=== PATIENT | male | born 1950 | race Caucasian/White ===

== ENCOUNTER 2023-05-17 14:32 | Outpatient (AMB) | payer MEDICARE, BC, SELFPAY ==
--- NOTE | 2023-05-17 14:45 | HO.NEPHOV_ITS ---
HPI HPI Comments History of Present Illness Details 72-year-old man with a history of longst anding hypertension and mild CKD. Overall blood pressure has been well controlled. Serum creatinine has been relatively stable. He was diagnosed with myasthenia gravis after developing double vision. Initially was treated with high-dose of steroids and currently he has on a tapering dose. He is scheduled for a bone densitometry Overall is doing well. No new complaints today. PFSH Family History Father Hypertension Diabetes Mother Hypertension Social History (Updated 05/17/23 @ 14:49 by Es Mejia) Patient Tobacco Use Status: Never used Tobacco Vital Signs 05/17/23 14:46 05/17/23 15:08 Height 5 ft 7 in Weight 172 lb BMI 26.9 BP 146/68 H 126/64 Blood Pressure Location Lt brachial Lt brachial Position Sitting Sitting Pulse 97 Pulse Source Pulse Oximeter Pulse Oximetry (%) 98 Oxygen Delivery Method Room Air Physical Exam Vital Signs: Last Vital Signs Pulse 97 05/17/23 14:46 BP 126/64 05/17/23 15:08 Pulse Ox 98 05/17/23 14:46 Oxygen Delivery Method Room Air 05/17/23 14:46 BMI result Body Mass Index 26.9 Const General: comfortable Nutritional Appearance: well nourished Orientation/consciousness: patient oriented x3 HEENT Head: No normal to inspection Mouth: moist mucous membranes Neck Neck: Yes supple and Yes no JVD Resp Auscultation: clear to auscultation bilaterally, no rales and rub present Cardio Jugular venous distension: no JVD Palpation: no palpable S3 and no palpable S4 Heart sounds: no rubs GI Palpation (GI): Soft to palpation and nontender Percussion: No Fluid wave present General: Yes no CVA tenderness Back/Spine/Pelvis Back: no CVA tenderness Skin General skin exam: no rashes or lesions noted Neuro General: patient oriented x3 Extrem General: Yes no pedal edema and No clubbing Assessment & Plan Assessment & Plan (1) CKD (chronic kidney disease): Comment: Due to diabetic hypertensive nephrosclerosis Code(s): N18.9 - Chronic kidney disease, unspecified Plan: Overall renal function is relatively close to baseline. Goal is to slow the progression of renal disease Maintain blood pressure less than 130/80 Continue to avoid nephrotoxic agents Increase p.o. fluid intake He would benefit from SGLT2 inhibitor (2) HTN (hypertension): Comment: Blood pressure is well control Code(s): I10 - Essential (primary) hypertension Plan: Discussed importance of low-salt diet. No changes were made to his antihypertensive regimen. (3) Diabetes mellitus with chronic kidney disease: Code(s): E11.22 - Type 2 diabetes mellitus with diabetic chronic kidney disease Plan: Maintain A1c less than 7% Watch blood sugars while on prednisone Coding Level of Care Code Est Pt Level 4 (44750) Diagnoses CKD (chronic kidney disease) N18.9 HTN (hypertension) I10 Diabetes mellitus with chronic kidney disease E11.22 Results Reviewed Results Reviewed: Recent creatinine 1.4 Nephrology Results: No Data to Display
[2023-05-17 14:46] VITALS: BP 146/68; PULSE 97; O2SAT 98; BMI 26.9
[2023-05-17 15:08] VITALS: BP 126/64
== END 2023-05-17 15:14 | disposition home or self-care (01) ==
PROVIDERS: PCP Internal Medicine; Visit Provider Internal Medicine Hypertension Specialist
DX: I12.9 Hypertensive chronic kidney disease with stage 1 through stage 4 chronic kidney disease, or unspecified chronic kidney disease (principal); E11.22 Type 2 diabetes mellitus with diabetic chronic kidney disease; N18.9 Chronic kidney disease, unspecified
CPT/HCPCS: 99214

== ENCOUNTER → 2023-05-17 14:32 | Outpatient (BNVA) | payer MEDICARE, BC, SELFPAY | PROVIDERS: PCP Internal Medicine; Visit Provider Internal Medicine Hypertension Specialist | DX: I12.9 Hypertensive chronic kidney disease with stage 1 through stage 4 chronic kidney disease, or unspecified chronic kidney disease (principal); E11.22 Type 2 diabetes mellitus with diabetic chronic kidney disease; N18.9 Chronic kidney disease, unspecified | CPT/HCPCS: 99212 ==

== ENCOUNTER 2023-11-15 10:59 | Outpatient (AMB) | payer MEDICARE, BC, SELFPAY ==
[2023-11-15 11:02] VITALS: BP 162/62; PULSE 87; O2SAT 98; BMI 25.8
--- NOTE | 2023-11-15 11:02 | HO.NEPHOV ---
Vital Signs 11/15/23 11:02 Height 5 ft 7 in Weight 165 lb BMI 25.8 BP 162/62 H Blood Pressure Location Lt brachial Position Sitting Pulse 87 Pulse Source Pulse Oximeter Pulse Oximetry (%) 98 Oxygen Delivery Method Room Air Intake Visit Reasons: 6 mon follow up/ Conf [employer] Fire Aid Required: No Accompanied by: Self / Same As Patient Allergies No Known Allergies Allergy (Verified 11/15/23 11:07) HPI Comments Details: 72-year-old man with a history of longstanding hypertension and mild CKD. Overall blood pressure has been well controlled. Serum creatinine has been relatively stable. He was diagnosed with myasthenia gravis after developing double vision. Initially was treated with high-dose of steroids and currently he has on a tapering dose. He is scheduled for a bone densitometry Overall is doing well. No new complaints today. 11/15/23 Farxiga hs been added HOme BP is excellent Office readings elevated PFSH Family History Father Hypertension Diabetes Mother Hypertension Social History Patient Tobacco Use Status: Never used Tobacco Physical Exam Vital Signs: Last Vital Signs Pulse 87 11/15/23 11:02 BP 162/62 H 11/15/23 11:02 Pulse Ox 98 11/15/23 11:02 Oxygen Delivery Method Room Air 11/15/23 11:02 BMI result Body Mass Index 25.8 Results Reviewed Results Reviewed: Recent creatinine 1.4 REcent eGFR 47 ml/mt Nephrology Results: No Data to Display Assessment & Plan Assessment & Plan (1) CKD (chronic kidney disease): Comment: Due to diabetic hypertensive nephrosclerosis Code(s): N18.9 - Chronic kidney disease, unspecified Category: Medical Plan: Overall renal function is relatively close to baseline. Goal is to slow the progression of renal disease Maintain blood pressure less than 130/80 Continue to avoid nephrotoxic agents Increase p.o. fluid intake Agree with starting SGLT2 inhibitor (2) HTN (hypertension): Comment: Blood pressure is well control at home; Office readings are elevated Code(s): I10 - Essential (primary) hypertension Category: Medical Plan: Discussed importance of low-salt diet. No changes were made to his antihypertensive regimen. (3) Diabetes mellitus with chronic kidney disease: Code(s): E11.22 - Type 2 diabetes mellitus with diabetic chronic kidney disease Category: Medical Plan: Maintain A1c less than 7% Watch blood sugars while on prednisone Orders: Orders Basic Metabolic Panel 6 Months I10 - Essential (primary) hypertension, N18.9 - Chronic kidney disease, unspecified Parathyroid Hormone Intact 6 Months I10 - Essential (primary) hypertension, N18.9 - Chronic kidney disease, unspecified Phosphorus 6 Months I10 - Essential (primary) hypertension, N18.9 - Chronic kidney disease, unspecified Coding Level of Care Code Est Pt Level 4 (79304) Diagnoses CKD (chronic kidney disease) N18.9 HTN (hypertension) I10 Diabetes mellitus with chronic kidney disease E11.22
== END 2023-11-15 11:23 | disposition home or self-care (01) ==
PROVIDERS: PCP Internal Medicine; Visit Provider Internal Medicine Hypertension Specialist
DX: I12.9 Hypertensive chronic kidney disease with stage 1 through stage 4 chronic kidney disease, or unspecified chronic kidney disease (principal); N18.9 Chronic kidney disease, unspecified; E11.22 Type 2 diabetes mellitus with diabetic chronic kidney disease
CPT/HCPCS: 99214

== ENCOUNTER → 2023-11-15 10:59 | Outpatient (BNVA) | payer MEDICARE, BC, SELFPAY | PROVIDERS: PCP Internal Medicine; Visit Provider Internal Medicine Hypertension Specialist | DX: E11.22 Type 2 diabetes mellitus with diabetic chronic kidney disease (principal); I12.9 Hypertensive chronic kidney disease with stage 1 through stage 4 chronic kidney disease, or unspecified chronic kidney disease; N18.9 Chronic kidney disease, unspecified | CPT/HCPCS: 99212 ==

== ENCOUNTER 2024-06-19 08:51 | Outpatient (AMB) | payer MEDICARE, BC, SELFPAY ==
[2024-06-19 08:53] VITALS: BP 138/66; PULSE 78; O2SAT 96; BMI 26.4
--- NOTE | 2024-06-19 08:53 | HO.NEPHOV_ITS ---
Vital Signs 06/19/24 08:53 Height 5 ft 7 in Weight 168 lb 8 oz BMI 26.4 BP 138/66 Blood Pressure Location Lt brachial Position Sitting Pulse 78 Pulse Source Pulse Oximeter Pulse Oximetry (%) 96 Oxygen Delivery Method Room Air Intake Visit Reasons: 6 mon follow up/ LVM Allergies No Known Allergies Allergy (Verified 06/19/24 08:55) Medication List - Last Reconciled 06/19/24 by Terrance Mclean MD calcium carbonate-vitamin D3 500 mg-10 mcg (400 unit) (Oyster Shell Calcium- Vitamin D3) 2 tabs PO DAILY empagliflozin 12.5 mg PO DAILY fenofibrate 54 mg PO DAILY hydralazine 50 mg PO BID hydrochlorothiazide 25 mg PO DAILY insulin glargine 38 units subcut QPM mecobalamin (vitamin B12) 1,000 mcg PO DAILY metformin ER 1,000 mg PO DAILY prednisone 5 mg PO Q OTHER DAY rosuvastatin 40 mg PO DAILY HPI Comments Details: 72-year-old man with a history of longstanding hypertension and mild CKD. Overall blood pressure has been well controlled. Serum creatinine has been relatively stable. He was diagnosed with myasthenia gravis after developing double vision. Initially was treated with high-dose of steroids and currently he has on a tapering dose. He is scheduled for a bone densitometry Overall is doing well. No new complaints today. 11/15/23 Farxiga hs been added;HOme BP is excellent ;Office readings elevated 06/19/24 No new issues PFSH Family History Father Hypertension Diabetes Mother Hypertension Social History Patient Tobacco Use Status: Never used Tobacco Physical Exam Vital Signs: Last Vital Signs Pulse 78 06/19/24 08:53 BP 138/66 06/19/24 08:53 Pulse Ox 96 06/19/24 08:53 Oxygen Delivery Method Room Air 06/19/24 08:53 BMI result Body Mass Index 26.4 Const General: comfortable Nutritional Appearance: well nourished Orientation/consciousness: patient oriented x3 HEENT Head: No normal to inspection Mouth: moist mucous membranes Neck Neck: Yes supple and Yes no JVD Resp Auscultation: clear to auscultation bilaterally, no rales and rub present Cardio Jugular venous distension: no JVD Palpation: no palpable S3 and no palpable S4 Heart sounds: no rubs GI Palpation (GI): Soft to palpation and nontender Percussion: No Fluid wave present General: Yes no CVA tenderness Back/Spine/Pelvis Back: no CVA tenderness Skin General skin exam: no rashes or lesions noted Neuro General: patient oriented x3 Extrem General: Yes no pedal edema and No clubbing Results Reviewed Nephrology Results: No Data to Display Assessment & Plan Assessment & Plan (1) CKD (chronic kidney disease): Comment: Due to diabetic hypertensive nephrosclerosis Code(s): N18.9 - Chronic kidney disease, unspecified Category: Medical Plan: Overall renal function is relatively close to baseline. Goal is to slow the progression of renal disease Maintain blood pressure less than 130/80 Continue to avoid nephrotoxic agents Increase p.o. fluid intake Agree with starting SGLT2 inhibitor Not on ACEi due to mild Hyperkalemia in the past (2) HTN (hypertension): Comment: Blood pressure is well control at home; Office readings are elevated Code(s): I10 - Essential (primary) hypertension Category: Medical Plan: Discussed importance of low-salt diet. No changes were made to his antihypertensive regimen. (3) Diabetes mellitus with chronic kidney disease: Code(s): E11.22 - Type 2 diabetes mellitus with diabetic chronic kidney disease Category: Medical Plan: Maintain A1c less than 7% Watch blood sugars while on prednisone Plan Potassium is normal Mild decrease in tCO2- shall watch Currently on MEtformin BUt eGFR is stable. If tCO2 decreases further, would have to stop Metformin h/o Myasthenia Gravis On Prednisone Orders: Orders Complete Blood Count no Diff 6 Months N18.9 - Chronic kidney disease, unspecified Comprehensive Met. Panel 6 Months N18.9 - Chronic kidney disease, unspecified Coding Level of Care Code Est Pt Level 4 (28156) Diagnoses CKD (chronic kidney disease) N18.9 HTN (hypertension) I10 Diabetes mellitus with chronic kidney disease E11.22
--- OUTSIDE RECORDS SUMMARY | 2024-06-19 09:19 | XMS_ITS | Encounter Summary ---
Author Organization [facility] Address [address] [place] [address] Care Team Providers Care Laminate Floor Installer Name Role Phone Rebecca Carrasco MD Primary Care Provider [phone] Encounter Details Date Type Department Care Team ([facility] Contact Info) Description 06/23/2021 Scanned Document [facility] Neurology Ophthalmology [address] [place] [id number] Harlan Maya MD Needs valid address Social History Tobacco Use Types Packs/Day Years Used Date Smoking Tobacco: Never Smokeless Tobacco: Never Alcohol Use Standard Drinks/Week Comments Yes 0 (1 standard drink = 0.6 oz pur e alcohol) SOCIAL DRINKER Sex and Gender Information Value Date Recorded Sex Assigned at Male 04/06/2022 1:28 PM EST Legal Sex Male 10:08 AM EST Gender Identity Male 04/06/2022 1:28 PM EST Sexual Orientation Choose not to disclose 2022 1:28 PM EST COVID-19 Exposure Response Date Recorded In the last month, have you been in contact with someone who was confirmed or suspected to have Coronavirus / COVID-19? No / Unsure 05/31/2021 1:51 PM EDT documented as of this encounter Plan of Treatment Not on file documented as of this encounter Visit Diagnoses Not on filedocumented in this encounter Care Teams Laminate Floor Installer Relationship Specialty Start Date End Date Rebecca Carrasco MD [address] [address] PCP - General Internal Medicine 05/10/21 documented as of this encounter
--- OUTSIDE RECORDS SUMMARY | 2024-06-19 09:19 | XMS_ITS | Encounter Summary ---
Author Organization [facility] Address [address] [place] [address] Care Team Providers Care Production Coordinator Name Role Phone Rebecca Carrasco MD Primary Care Provider [phone] Encounter Details Date Type Department Care Team (Late st Contact Info) Description 06/16/2021 Scanned Document [facility] Neurology Ophthalmology [address] [id number] Anna Valenzuela DO [address] [place] [id number] Social History Tobacco Use Types Packs/Day Years [...] on filedocumented in this encounter Care Teams Production Coordinator Relationship Specialty Start Date End Date Rebecca Carrasco MD [address] [place] [id number] PCP - General Internal Medicine 05/10/21 documented as of this encounter
--- OUTSIDE RECORDS SUMMARY | 2024-06-19 09:19 | XMS_ITS | Encounter Summary ---
Author Organization [facility] Address [address] [facility] [address] [place] [address] Phone Care Team Providers Care Senior Information Security Architect Name Role Phone Rebecca Carrasco MD Primary Care Provider [phone] Reason for Visit * Reason Comments Med Refill Encounter Details Date Type Department Care Team (Late st Contact Info) Description 03/08/2022 Refill [facility] [address] [facility] [address] [place] [address] Terrance Mclean MD Social History Tobacco Use Types Packs/Day Years Used Date Smoking Tobacco: Never Smokeless Tobacco: Never Alcohol Use Standard Drinks/Week Comments Yes 0 (1 standard drink = 0.6 oz pure alcohol) Alcoholic Drinks/day: Occasional social drink Sex and Gender Information Value Date Recorded Sex Assigned at Not on file Legal Sex Male 5:02 PM EST Gender Identity Not on file Sexual Orientation Not on file documented as of this encounter Plan of Treatment Not on file documented as of this encounter Visit Diagnoses Not on filedocumented in this encounter Care Teams Senior Information Security Architect Relationship Specialty Start Date End Date Rebecca Carrasco MD [address] [place] [address] [id number] PCP - General 03/16/20 documented as of this encounter
--- OUTSIDE RECORDS SUMMARY | 2024-06-19 09:19 | XMS_ITS | Encounter Summary ---
Author Organization [facility] Address [address] [place] [address] Phone Care Team Providers Care Child Welfare Consultant Name Role Phone Rebecca Carrasco MD Primary Care Provider [phone] Encounter Details Date Type Department Care Team (Late st Contact Info) Description 11/10/2021 Office Communication [facility] [address] [place] [address] Naheed Stephens Social History Tobacco Use Types Packs/Day Years [...] on file documented as of this encounter Miscellaneous Notes * Telephone Encounter - Naheed Stephens - 11/10/2021 5:23 PM EDT Pt called needing a refill on his hydrochlorothiazide. He did schedule a f/u , earliest I could offer was the beginning of January so he said he would call for cancellations. documented in this encounter Plan of Treatment Not on file documented as of this encounter Visit Diagnoses Not on filedocumented in this encounter Care Teams Child Welfare Consultant Relationship Specialty Start Date End Date Rebecca Carrasco MD [address] [place] [address] [address] [place] [address] PCP - General 03/16/20 documented as of this encounter
--- OUTSIDE RECORDS SUMMARY | 2024-06-19 09:19 | XMS_ITS | Clinical Summary ---
Author Organization [facility] Address [address] [place] [phone] Phone Care Team Providers Care Cloth Shrinking Supervisor Name Role Phone Rebecca Carrasco MD Primary Care Provider [phone] Allergies Active Allergy Reactions Criticality Noted Date Comments Meloxicam Other (see comments) 09/03/2014 Medications aspirin (ST MANUELITO) 81 MG EC tablet Take 1 tablet by mouth 1 (one) time each day Active fenofibrate (TRICOR) 54 MG tablet Take 1 tablet by mouth 1 (one) time each day Active insulin glargine (Basaglar KwikPen) 100 UNIT/ML injection Inject 55 Units under the skin 1 (one) time each day Active metFORMIN XR (GLUCOPHAGE-XR) 750 MG 24 hr tablet Take 2 tablets by mouth 1 (one) time each day Active metoprolol succinate XL (TOPROL-XL) 100 MG 24 hr tablet Take 1 tablet by mouth every morning Active rosuvastatin (CRESTOR) 40 MG tablet Take 1 tablet by mouth 1 (one) time each day Active SITagliptin (JANUVIA) 50 MG tablet Take 1 tablet by mouth 1 (one) time each day Active amLODIPine (NORVASC) 10 MG tablet Take 1 tablet by mouth once daily 90 tablet 12/08/2021 Active predniSONE (DELTASONE) 10 MG tablet 15 mg 04/19/2022 Active hydroCHLOROthia zide 25 MG tablet Take 1 tablet (25 mg total) by mouth 1 (one) time each day 90 tablet 3 04/26/2023 Active hydrALAZINE 50 MG tabletIndicatio ns:Hypertensive renal disease Take 1 tablet (50 mg total) by mouth in the morning and 1 tablet (50 mg total) in the evening. 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 05/05 Chronic kidney disease stage 3 08/19/2020 Hyperkalemia 08/19/2020 Hypertensive heart and renal disease with (congestive) heart failure 08/19/2020 Hypertensive renal disease 08/19/2020 Immunizations Immunization Administration Dates Next Due Typhoid, Unspecified 03/17/2009 Family History Medical History Relation Comments Diabetes Father Hypertension Father Heart disease Mother Relation Status Comments Father Mother Social History Tobacco Use Types Packs/Day Years [...] on file Sexual Orientation Not on file Last Filed Vital Signs Vital Sign Reading Time Taken Comments Blood Pressure 159/80 05/25/2022 3:23 PM EDT Pulse 84 05/25/2022 3:23 PM EDT Temperature - - Respiratory Rate - - Oxygen Saturation 98% 05/25/2022 3:23 PM EDT Inhaled Oxygen Concentration - - Weight 76.6 kg (168 lb 12.8 oz) 05/25/2022 3:23 PM EDT Height 170.2 cm (5' 7 ) 12/11/2019 12:0 0 PM EDT Body Mass Index 26.44 12/11/2019 12:00 PM EDT Plan of Treatment Health Maintenance Due Date Last Done Comments Pneumococcal Vaccine: 50+ Ye ars (1 of 2 - PCV) 06/15/1969 Diabetes: Hemoglobin A1C 05/25/2022 Diabetes: Ophthalmology Exam 05/25/2022 Diabetes: Pedal Pulse Checked 05/25/2022 Diabetes: Sensory Foot Exam 05/25/2022 Diabetes: Visual Foot Exam 05/25/2022 Influenza Vaccine (Season Ended) 2024 Hepatitis B Vaccine Aged Out No longe r eligible based on patient's age to complete this topic [place] [address] [place] [address] Medicare [facility] Medicare Care Teams Cloth Shrinking Supervisor Relationship Specialty Start Date End Date Rebecca Carrasco MD [address] [place] [id number] PCP - General 03/16/20
--- OUTSIDE RECORDS SUMMARY | 2024-06-19 09:19 | XMS_ITS | Encounter Summary ---
Author Organization [facility] Address [address] [place] [address] Care Team Providers Care Landfill Attendant Name Role Phone Rebecca Carrasco MD Primary Care Provider [phone] Encounter Details Date Type Department Care Team ([facility] Contact Info) Description 06/23/2021 Scanned Document [facility] Neurology Ophthalmology [address] [place] [phone] Harlan Maya MD Needs valid address [...] on filedocumented in this encounter Care Teams Landfill Attendant Relationship Specialty Start Date End Date Rebecca Carrasco MD [address] [address] PCP - General Internal Medicine 05/10/21 documented as of this encounter
--- OUTSIDE RECORDS SUMMARY | 2024-06-19 09:19 | XMS_ITS ---
Author Name [facility] History of Medication Use Medication Directions Dispensed Refills Start Date End Date Stat empagliflozin (JARDIANCE) 25 MG tablet Take 0.5 tablets (12.5 mg total) by mouth. 10/09/2023 active predniSONE (DELTASONE) 2.5 MG tablet Take 1 tablet (2.5 mg total) by mouth daily. With food. To take together with 5mg tb 07/19/2022 4 aborted fenofibrate (LOFIBRA) 54 MG tablet Take 1 tablet by mouth. active calcium-vitamin D (OSCAL-500/400) 500 mg/400 unit per tablet Take 2 tablets by mouth daily. With food 08/16/2021 2 aborted hydrochlorothiazide (HYDRODIURIL) 25 MG tablet Take 1 tablet by mouth daily. 04/28/2021 active aspirin enteric coated (ECOTRIN LOW STRENGTH) 81 MG EC tablet Take 1 tablet by mouth. active predniSONE (DELTASONE) 5 MG tablet Take 1 tablet (5 mg total) by mouth daily. With food. 04/19/2022 4 active pyridostigmine (MESTINON) 60 MG tablet Take 1 tablet (60 mg total) by mouth 3 (three) times a day. 07/27/2021 3 active hydrALAZINE (APRESOLINE) 50 MG tablet Take 1 tablet by mouth 2 (two) times a day. 03/04/2021 active metoPROLOL SUCCINATE (TOPROL-XL) 100 MG 24 hr tablet Take 1 tablet by mouth every morning. 2 aborted aspirin enteric coated (ECOTRIN LOW STRENGTH) 81 MG EC tablet Take 1 tablet (81 mg total) by mouth. active amLODIPine (NORVASC) 10 MG tablet Take 1 tablet (10 mg total) by mouth daily. 12/08/2021 active amLODIPine (NORVASC) 10 MG tablet Take 1 tablet by mouth daily. 03/04/2021 2 aborted predniSONE (DELTASONE) 10 MG tablet Take 1 tablet (10 mg total) by mouth daily. With food. For 90 days supply 04/19/2022 4 active predniSONE (DELTASONE) 10 MG tablet 1.5 tablets (15 mg total). 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 Myasthenia (HCC) active EncounterDiagnosisAct [facility] Macular hole of right eye active 2021-05-31 ProblemAct [facility] Hypertensive heart and renal disease with (congestive) heart failure active 2020-08-19 ProblemAct [facility] Scotoma involving central area, right eye active 2021-05-31 ProblemAct [facility] Hip pain, left active 2022-07-19 ProblemAct [facility] Diabetes active 2022-07-19 ProblemAct [facility] Hypertension active 2022-07-19 ProblemAct [facility] Hyperkalemia active 2020-08-19 ProblemAct [facility] Myasthenia gravis with exacerbation, ocular active 2021-05-31 ProblemAct [facility] Hypercholesterolemia active 2022-07-19 ProblemAct [facility] Stage 3 chronic kidney disease active 2020-08-19 ProblemAct [facility] Blepharoptosis, acquired, bilateral active 2021-10-15 ProblemAct [facility] Binocular vision disorder with diplopia active 2021-06-02 ProblemAct [facility] Encounters Encounter Type Encounter Reason Primary Diagnosis Location Date Ambulatory Neuropathy Neuropathy [facility] 05/07/2024 Ambulatory Myasthenia gravis without (acute) exacerbation Myasthenia gravis without (acute) exacerbation [facility] 10/17/2023 Ambulatory Myasthenia gravis without (acute) exacerbation Myasthenia gravis without (acute) exacerbation [facility] 07/25/2023 Ambulatory Myasthenia gravis without (acute) exacerbation Myasthenia gravis without (acute) exacerbation [facility] 05/02/2023 Ambulatory Myasthenia gravis without (acute) exacerbation Myasthenia gravis without (acute) exacerbation [facility] 10/18/2022 Ambulatory Myasthenia gravi s without (acute) exacerbation [facility] 07/19/2022 Ambulatory Myasthenia gravi s without (acute) exacerbation [facility] 04/19/2022 Ambulatory Myasthenia gravi s without (acute) exacerbation [facility] 01/18/2022 Ambulatory Encounter for screening for diabetes mellitus [facility] 11/16/2021 Ambulatory Myasthenia gravi s with (acute) exacerbation [facility] 10/15/2021 Ambulatory Myasthenia gravi s without (acute) exacerbation [facility] 08/24/2021 Ambulatory Myasthenia gravi s with (acute) exacerbation [facility] 07/27/2021 Ambulatory Myasthenia gravi s with (acute) exacerbation [facility] 05/31/2021 Care Team Organization Name Specialty Phone Email Start Date End Da te [facility] GARC[facility] Primary [facility] 01/18/2022 2024 [facility] Primary Care 07/27/2021 01/18/2022
--- OUTSIDE RECORDS SUMMARY | 2024-06-19 09:19 | XMS_ITS | Encounter Summary ---
Author Organization [facility] Address [address] [place] [address] Care Team Providers Care Modeling Analyst Name Role Phone Rebecca Carrasco MD Primary Care Provider [phone] Encounter Details Date Type Department Care Team ([facility] Contact Info) Description 12/15/2021 Scanned Document [facility] Neurology Ophthalmology [address] [place] [phone] Harlan Maya MD Needs valid address [...] Exposure Response Date Recorded In the last 10 days, have yo u been in contact with someone who was confirmed or suspected to have Coronavirus/COVID-19? No / Unsure 11/16/2021 10:39 AM EDT documented as of this encounter Plan of Treatment Not on file documented as of this encounter Visit Diagnoses Not on filedocumented in this encounter Care Teams Modeling Analyst Relationship Specialty Start Date End Date Rebecca Carrasco MD [address] [place] [address] PCP - General Internal Medicine 05/10/21 documented as of this encounter
--- OUTSIDE RECORDS SUMMARY | 2024-06-19 09:19 | XMS_ITS | Encounter Summary ---
Author Organization [facility] Address [address] [place] [address] Care Team Providers Care Rocket Motor Tester Name Role Phone Rebecca Carrasco MD Primary Care Provider [phone] Encounter Details Date Type Department Care Team ([facility] Contact Info) Description 06/23/2021 Scanned Document [facility] Neurology Ophthalmology [address] [place] [phone] Harlan Maya MD Needs valid address [...] on filedocumented in this encounter Care Teams Rocket Motor Tester Relationship Specialty Start Date End Date Rebecca Carrasco MD [address] [address] PCP - General Internal Medicine 05/10/21 documented as of this encounter
--- OUTSIDE RECORDS SUMMARY | 2024-06-19 09:19 | XMS_ITS | Clinical Summary ---
Author Organization [facility] Address [address] [place] [address] Care Team Providers Care Customer Pricing Manager Name Role Phone Rebecca Carrasco MD Primary Care Provider [phone] Allergies Active Allergy Reactions Criticality Noted Date Comments Meloxicam Other (See Comments) 09/03/2014 Medications aspirin enteric coated (ECOTRIN LOW STRENGTH) 81 MG EC tablet Take 1 tablet (81 mg total) by mouth. Active fenofibrate (LOFIBRA) 54 MG tablet Take 1 tablet (54 mg total) by mouth. Active hydrALAZINE (APRESOLINE) 50 MG tablet Take 1 tablet (50 mg total) by mouth 2 (two) times a day. 1 Active hydrochlorothi azide (HYDRODIURIL) 25 MG tablet Take 1 tablet (25 mg total) by mouth daily. 2 Active insulin glargine, BASAGLAR KWIKPEN, 100 UNIT/ML prefilled pen injection INJECT 51 UNITS SUBCUTANEOUSLY ONCE DAILY 2 Active metFORMIN (GLUCOPHAGE-XR ) 750 MG 24 hr tablet Take 2 tablets (1,500 mg total) by mouth. Active rosuvastatin (CRESTOR) 40 MG tablet Take 1 tablet (40 mg total) by mouth. Active Januvia 100 MG tablet Take 1 tablet (100 mg total) by mouth daily. 1 Active diltiazem (CARDIZEM SR) 120 MG 12 hr capsule Take 1 capsule (120 mg total) by mouth daily. 2 Active amLODIPine (NORVASC) 10 MG tablet Take 1 tablet (10 mg total) by mouth daily. 2 Active Calcium Carb-Cholecalc iferol 500-10 MG-MCG TabIndications :MG (myasthenia gravis) (FORM[facility]) TAKE 2 TABLETS BY MOUTH ONCE DAILY WITH FOOD 180 tablet 11 4 Active predniSONE (DELTASONE) 5 MG tabletIndicati ons:MG (myasthenia gravis) ([facility]) Take 1 tablet (5 mg total) by mouth daily. With food. 30 tablet 5 4 Active empagliflozin (JARDIANCE) 25 MG tablet Take 0.5 tablets (12.5 mg total) by mouth. 4 Active Active Problems Problem Noted Date Diagnosed Date Diabetes 07/19/2022 07/19/2022 Hip pain, left 07/19/2022 07/19/2022 Hypercholesterolemia 07/19/2022 07/19/2022 Hypertension 07/19/2022 07/19/2022 Blepharoptosis, acquired, bilateral 10/15/2021 Binocular vision disorder with diplopia 06/03/19 22 Myasthenia gravis with exacerbation, ocular 05/05 Macular hole of right eye 05/31/2021 Mild nonproliferative diabet ic retinopathy of both eyes without macular edema associated with type 2 diabetes mellitus 05/31/2021 Scotoma involving central area, right eye 2021 Hyperkalemia 08/19/2020 07/19/2022 Hypertensive heart and renal disease with (congestive) heart failure 08/19/2020 07/19/2022 Stage 3 chronic kidney disease 08/19/2020 0 07/19/2022 Encounters Date Type Department Care Team Description 05/07/2024 12:30 PM EST Office Visit [facility] Neuromuscular [facility] [address] [facility] [address] [place] [address] Robbin Estrella MD Myasthenia ([facility]) (Primary Dx) 05/07/2024 Travel from Last 3 Months Family History Medical History Relation Name Comments Diabetes Father Heart disease Mother Relation Name Status Comments Father Mother Social History Tobacco Use Types Packs/Day Years Used Date Smoking Tobacco: Never Smokeless Tobacco: Never Tobacco Cessation:Counseling Given: Yes Alcohol Use Standard Drinks/Week Comments Yes 0 (1 standard drink = 0.6 oz pur e alcohol) SOCIAL DRINKER Sex and Gender Information Value Date Recorded Sex Assigned at Male 04/06/2022 1:28 PM EST Legal Sex Male 10:08 AM EST Gender Identity Male 04/06/2022 1:28 PM EST Sexual Orientation Choose not to disclose 2022 1:28 PM EST Last Filed Vital Signs Vital Sign Reading Time Taken Comments Blood Pressure 145/90 05/07/2024 12:14 PM EST Pulse 85 05/07/2024 12:14 PM EST Temperature - - Respiratory Rate 18 05/07/2024 12:14 PM EST Oxygen Saturation - - Inhaled Oxygen Concentration - - Weight 75.3 kg (166 lb) 05/07/2024 12:14 PM EST Height 170.2 cm (5' 7 ) 10/17/2023 10:55 AM EDT Body Mass Index 26 10/17/2023 10:55 AM EDT Plan of Treatment Health Maintenance Due Date Last Done Comments Hepatitis C Virus Screening 1948 Foot Exam 1958 Lipid Panel 1958 Ophthalmology Exam 1958 Microalbumin/Creatinine Ratio Urine 1966 DTaP/Tdap/Td Vaccines (1 - Tdap) 06/15/1967 Pneumococcal Vaccines 50+ (1 of 2 - PCV) 06/15/1967 Colonoscopy 1993 Zoster (Shingles) Vaccine (1 of 2) 1998 Hemoglobin A1C 10/19/2022 07/19/2022 RSV Vaccine 60 years and older and Patients (1 - 1-dose 75+ series) 06/15/2023 Creatinine with GFR 07/20/2023 07/19/2022 COVID-19 Vaccine ( season) 2023 01/11/2023, 11/14/2022, 09/22/2021, Additional history exists Influenza Vaccine Completed 12/08/2023, 12/09/2022 Hepatitis B Vaccines Aged Out No long er eligible based on patient's age to complete this topic Procedures Procedure Name Priority Date/Time Associated Diagnosis Comments HEMOGLOBIN A1C Routine 07/19/2022 12:48 PM EDT Screening for diabetes mellitus Abnormal finding of blood chemistry, unspecified BASIC METABOLIC PANEL Routine 07/19/2022 12:48 PM EDT Screening for diabetes mellitus from Last 3 Months or Most Recently Relevant to Health Maintenance Results * (ABNORMAL) Hemoglobin A1c (07/19/2022 12:48 PM EDT) Hemoglobin A1C 8.2(H) <5.7 % of total Hgb [facility] Comment: For someone without known diabetes, a hemoglobin A1c value of 6.5% or greater indicates that they may have diabetes and this should be confirmed with a follow-up test. For someone with known diabetes, a value <7% indicates that their diabetes is well controlled and a value greater than or equal to 7% indicates suboptimal control. A1c targets should be individualized based on duration of diabetes, age, comorbid conditions, and other considerations. Currently, no consensus exists regarding use of hemoglobin A1c for diagnosis of diabetes for children. ?? Blood specimen (specimen) 07/19/2022 12:48 PM EDT 07/19/2022 12:48 PM EDT Narrative [facility] - 07/20/2022 1:59 AM EDT FASTING:YES FASTING: YES Robbin Nuno MD LAB BLOOD ORDERABLES Fin al Result [id number] [address] [place] [phone] * (ABNORMAL) Basic Metabolic Panel (07/19/2022 12:48 PM EDT) Glucose 147(H) 65 - 99 mg/dL [facility] Comment: ? Fasting reference interval For someone without known diabetes, a glucose value >125 mg/dL indicates that they may have diabetes and this should be confirmed with a follow-up test. Blood Urea Nitrogen (BUN) 20 7 - 25 mg/dL [facility] Creatinine 1.33(H) 0.70 - 1.28 mg/dL [facility] Creatinine w/ eGFR 56(L) > OR = 60 mL/min/1.7 3m2 [facility] Comment: The eGFR is based on the CKD-EPI 2020 equation. To calculate the new eGFR from a previous Creatinine or Cystatin C result, go to https://www.kidney.org/professionals/ kdoqi/gfr%5Fcalculator BUN/Creatinine Ratio 15 6 - 22 (calc) [facility] Sodium 138 135 - 146 mmol/L [facility] Potassium 5.3 3.5 - 5.3 mmol/L [facility] Chloride 103 98 - 110 mmol/L [facility] CO2 26 20 - 32 mmol/L [facility] Calcium 10.3 8.6 - 10.3 mg/dL [facility] Blood specimen (specimen) 07/19/2022 12:48 PM EDT 07/19/2022 12:48 PM EDT Narrative [facility] - 07/20/2022 1:59 AM EDT FASTING:YES FASTING: YES us Robbin Nuno MD LAB BLOOD ORDERABLES Fin al Result [id number] [address] [place] [phone] from Last 3 Months or Most Recently Relevant to Health Maintenance Insurance MEDICARE PART A & B [facility] Care Teams Customer Pricing Manager Relationship Specialty Start Date End Date Rebecca Carrasco MD [address] [phone] PCP - General Internal Medicine 05/10/21
== END 2024-06-19 09:12 | disposition home or self-care (01) ==
LOC: HO.HKAS 08:52
PROVIDERS: PCP Internal Medicine; Visit Provider Internal Medicine Hypertension Specialist
DX: I12.9 Hypertensive chronic kidney disease with stage 1 through stage 4 chronic kidney disease, or unspecified chronic kidney disease (principal); E11.22 Type 2 diabetes mellitus with diabetic chronic kidney disease; N18.2 Chronic kidney disease, stage 2 (mild)
CPT/HCPCS: 99214

== ENCOUNTER → 2024-06-19 08:51 | Outpatient (BNVA) | payer MEDICARE, BC, SELFPAY | PROVIDERS: PCP Internal Medicine; Visit Provider Internal Medicine Hypertension Specialist | DX: E11.22 Type 2 diabetes mellitus with diabetic chronic kidney disease (principal); I12.9 Hypertensive chronic kidney disease with stage 1 through stage 4 chronic kidney disease, or unspecified chronic kidney disease; N18.9 Chronic kidney disease, unspecified | CPT/HCPCS: 99212 ==

== ENCOUNTER 2024-12-27 08:21 | Outpatient (REF) | payer MEDICARE, BC, SELFPAY ==
--- OUTSIDE RECORDS SUMMARY | 2024-12-27 08:41 | XMS_ITS | Encounter Summary ---
Author Organization [facility] Address [address] [place] [address] Phone Care Team Providers Care Electronics Parts Sales Representative Name Role Phone Rebecca Carrasco MD Primary Care Provider [phone] Encounter Details Date Type Department Care Team (Late st Contact Info) Description 11/10/2021 Office Communication [facility] [address] [place] [address] Naheed Stephens Social History Tobacco [...] on filedocumented in this encounter Care Teams Electronics Parts Sales Representative Relationship Specialty Start Date End Date Rebecca Carrasco MD [address] [place] [address] 2 [place] [address] PCP - General 03/16/20 documented as of this encounter
--- OUTSIDE RECORDS SUMMARY | 2024-12-27 08:41 | XMS_ITS | Encounter Summary ---
Author Organization [facility] Address [address] [facility] [address] [place] [address] Phone Care Team Providers Care Assembler Insulator Name Role Phone Rebecca Carrasco MD Primary Care Provider [phone] Reason for Visit * Reason Comments Med Refill Encounter Details Date Type Department Care Team (Late st Contact Info) Description 03/08/2022 Refill [facility] [address] [facility] [address] [place] [address] Terrance Mclean MD Social History [...] on filedocumented in this encounter Care Teams Assembler Insulator Relationship Specialty Start Date End Date Rebecca Carrasco MD [address] [place] [id number] PCP - General 03/16/20 documented as of this encounter
--- OUTSIDE RECORDS SUMMARY | 2024-12-27 08:42 | XMS_ITS | Clinical Summary ---
Author Organization [facility] Address [address] [place] [phone] Phone Care Team Providers Care Certified Medication Technician Name Role Phone Rebecca Carrasco MD Primary Care Provider [phone] Allergies Active Allergy Reactions Criticality Noted Date [...] Noted Date Diagnosed Date Diabetes mellitus 05/25/2022 Pain of hip region 05/25/2022 Hypercholesterolemia 05/25/2022 Non-healing surgical wound 05/25/2022 [...] Diabetes: Visual Foot Exam 05/25/2022 Influenza Vaccine (#1) 2024 Hepatitis B Vaccine Aged Out No longe r eligible based on patient's age to complete this topic [place] [address] [address] [place] [address] [place] [address] [address] Medicare Care Teams Certified Medication Technician Relationship Specialty Start Date End Date Rebecca Carrasco MD [address] [place] [id number] PCP - General 03/16/20
--- OUTSIDE RECORDS SUMMARY | 2024-12-27 08:42 | XMS_ITS | Encounter Summary ---
Author Organization [facility] Address [address] [place] [address] Care Team Providers Care Printing Equipment Mechanic Apprentice Name Role Phone Rebecca Carrasco MD Primary Care Provider [phone] Encounter Details Date Type Department Care Team ([facility] Contact Info) Description 12/15/2021 Scanned Document [facility] Neurology Ophthalmology [address] [place] [phone] Harlan Maya MD Social History Tobacco Use Types Packs/Day [...] on filedocumented in this encounter Care Teams Printing Equipment Mechanic Apprentice Relationship Specialty Start Date End Date Rebecca Carrasco MD [address] [place] [address] [place] [address] PCP - General Internal Medicine 05/10/21 documented as of this encounter
--- OUTSIDE RECORDS SUMMARY | 2024-12-27 08:42 | XMS_ITS ---
Author Name [facility] Organization Unknown History of Medication Use Medication Directions Dispensed Refills Start Date End Date Status empagliflozin (JARDIANCE) 25 MG tablet Take 0.5 tablets (12.5 mg total) by mouth. 4 active Calcium Carb-Cholecalciferol 500-10 MG-MCG Tab TAKE 2 TABLETS BY MOUTH ONCE DAILY WITH FOOD 4 07/25/19 24 active predniSONE (DELTASONE) 2.5 MG tablet Take 1 tablet (2.5 mg total) by mouth daily. With food. To take together with 5mg tb 3 05/02/19 24 aborted predniSONE (DELTASONE) 10 MG tablet Take 1 tablet (10 mg total) by mouth daily. With food. For 90 days supply 3 07/25/19 24 active predniSONE (DELTASONE) 5 MG tablet Take 1 tablet (5 mg total) by mouth daily. With food. 3 07/25/19 24 active predniSONE (DELTASONE) 10 MG tablet 1.5 tablets (15 mg total). 3 05/02/19 24 active Calcium Carb-Cholecalciferol 500-10 MG-MCG Tab TAKE 2 TABLETS BY MOUTH ONCE DAILY WITH FOOD 2 03/27/19 24 active predniSONE (DELTASONE) 20 MG tablet Take 1 tablet by mouth once daily with food 2 04/19/19 23 active amLODIPine (NORVASC) 10 MG tablet Take 1 tablet (10 mg total) by mouth daily. 2 active diltiazem (CARDIZEM SR) 120 MG 12 hr capsule Take 1 capsule (120 mg total) by mouth daily. 2 active calcium-vitamin D (OSCAL-500/400) 500 mg/400 unit per tablet Take 2 tablets by mouth daily. With food 2 01/04/20 aborted predniSONE (DELTASONE) 20 MG tablet Take 1 tablet (20 mg total) by mouth daily. With food. 2 12/25/19 22 aborted calcium-vitamin D (OSCAL-500/400) 500 mg/400 unit per tablet Take 2 tablets by mouth daily. With food 2 active pyridostigmine (MESTINON) 60 MG tablet Take 1 tablet (60 mg total) by mouth 3 (three) times a day. 2 04/19/19 active hydrochlorothiazide (HYDRODIURIL) 25 MG tablet Take 1 tablet by mouth daily. 2 active hydrochlorothiazide (HYDRODIURIL) 25 MG tablet Take 1 tablet (25 mg total) by mouth daily. 2 active insulin glargine, BASAGLAR KWIKPEN, 100 UNIT/ML prefilled pen injection INJECT 51 UNITS SUBCUTANEOUSLY ONCE DAILY 2 active Januvia 100 MG tablet Take 1 tablet (100 mg total) by mouth daily. 1 active amLODIPine (NORVASC) 10 MG tablet Take 1 tablet by mouth daily. 1 11/17/19 aborted hydrALAZINE (APRESOLINE) 50 MG tablet Take 1 tablet by mouth 2 (two) times a day. 1 active hydrALAZINE (APRESOLINE) 50 MG tablet Take 1 tablet (50 mg total) by mouth 2 (two) times a day. 1 active cholecalciferol (CHOLECALCIFEROL) 25 MCG (1000 UT) tablet Take 1 tablet (1,000 Units total) by mouth daily. 07/25/19 24 active omega-3 fatty acids (FISH OIL) 1000 MG Cap capsule Take by mouth. 10/16/19 22 aborted metoPROLOL SUCCINATE (TOPROL-XL) 100 MG 24 hr tablet Take 1 tablet by mouth every morning. 08/25/19 22 aborted aspirin enteric coated (ECOTRIN LOW STRENGTH) 81 MG EC tablet Take 1 tablet (81 mg total) by mouth. active aspirin enteric coated (ECOTRIN LOW STRENGTH) 81 MG EC tablet Take 1 tablet by mouth. active fenofibrate (LOFIBRA) 54 MG tablet Take 1 tablet by mouth. active fenofibrate (LOFIBRA) 54 MG tablet Take 1 tablet (54 mg total) by mouth. active metFORMIN (GLUCOPHAGE-XR) 750 MG 24 hr tablet Take 2 tablets by mouth. active metFORMIN (GLUCOPHAGE-XR) 750 MG 24 hr tablet Take 2 tablets (1,500 mg total) by mouth. active rosuvastatin (CRESTOR) 40 MG tablet Take 1 tablet by mouth. active rosuvastatin (CRESTOR) 40 MG tablet Take 1 tablet (40 mg total) by mouth. active Allergies Allergen Reaction Severity Comment Documented Date Source Statu s MELOXICAM OTHER (SEE COMMENTS) 09/03/2014 [facility] Problems Problem Status Onset Date Problem Type Date of Resolution Source Mild nonproliferative diabetic retinopathy of both eyes without macular edema associated with type 2 diabetes mellitus active 2021-05-[address] [facility] [facility] [place] Myasthenia gravis with exacerbation, ocular active 2021-05-31 [facility]Act [facility] Blepharoptosis, acquired, bilateral active 2021-10-15 [facility] My[facility]hen[facility] (HCC) active EncounterDiagnosisAct [facility] Stage 3 chronic kidney disease active 2020-08-19 ProblemAct [facility] Hypercholesterolemia active 2022-07-19 ProblemAct [facility] Diabetes active 2022-07-19 ProblemAct [facility] Hypertension active 2022-07-19 ProblemAct [facility] Hyperkalemia active 2020-08-19 ProblemAct [facility] Binocular vision disorder with diplopia active 2021-06-02 ProblemAct [facility] Macular hole of right eye active 2021-05-31 [facility] Hypertensive heart and renal disease with (congestive) heart failure active 2020-08-19 ProblemAct [facility] Scotoma involving central area, right eye active 2021-05-31 [facility]Act [facility] Hip pain, left active 2022-07-[address] [facility] Encounters Encounter Type Encounter Reason Primary Diagnosis Location Date Ambulatory Neuropathy Neuropathy [facility] 05/07/2024 Ambulatory Myasthenia gravis without (acute) exacerbation Myasthenia gravis without (acute) exacerbation [facility] 10/17/2023 Ambulatory Myasthenia gravis without (acute) exacerbation Myasthenia gravis without (acute) exacerbation [facility] 07/25/2023 Ambulatory Myasthenia gravis without (acute) exacerbation Myasthenia gravis without (acute) exacerbation [facility] 05/02/2023 Ambulatory Myasthenia gravis without (acute) exacerbation Myasthenia gravis without (acute) exacerbation [facility] 10/18/2022 Ambulatory Myasthenia gravi s without (acute) exacerbation [facility] 07/19/2022 Ambulatory Myasthenia gravi s without (acute) exacerbation [facility] 04/19/2022 Ambulatory Myasthenia gravi s without (acute) exacerbation [facility] 01/18/2022 Ambulatory Encounter for screening for diabetes mellitus [facility] 11/16/2021 Ambulatory Myasthenia gravi s with (acute) exacerbation [facility] 10/15/2021 Ambulatory Myasthenia gravi s without (acute) exacerbation [facility] 08/24/2021 Ambulatory Myasthenia gravi s with (acute) exacerbation [facility] 07/27/2021 Ambulatory Myasthenia gravi s with (acute) exacerbation [facility] 05/31/2021 Care Team Organization Name Specialty Phone Email Start Date End Da te [facility] 01/18/2022 2024 [facility] Primary [facility] 07/27/2021 01/18/2022
--- OUTSIDE RECORDS SUMMARY | 2024-12-27 08:43 | XMS_ITS | Encounter Summary ---
Author Organization [facility] Address [address] [place] [address] Care Team Providers Care Micro Photographer Name Role Phone Rebecca Carrasco MD Primary Care Provider [phone] Encounter Details Date Type Department Care Team (Late st Contact Info) Description 06/16/2021 Scanned Document [facility] Neurology Ophthalmology [address] [phone] Anna Valenzuela DO [address] [place] [phone] Social History Tobacco Use Types Packs/Day Years [...] on filedocumented in this encounter Care Teams Micro Photographer Relationship Specialty Start Date End Date Rebecca Carrasco MD [address] [place] [id number] PCP - General Internal Medicine 05/10/21 documented as of this encounter
--- OUTSIDE RECORDS SUMMARY | 2024-12-27 08:43 | XMS_ITS | Encounter Summary ---
Author Organization [facility] Address [address] [place] [address] Care Team Providers Care Process Treater Name Role Phone Rebecca Carrasco MD Primary Care Provider Encounter Details Date Type Department Care Team ([facility] Contact Info) Description 06/23/2021 Scanned Document [facility] Neurology Ophthalmology [address] [place] [phone] Harlan Maya MD Social History Tobacco Use [...] on filedocumented in this encounter Care Teams Process Treater Relationship Specialty Start Date End Date Rebecca Carrasco MD [address] [place] [address] [place] [address] PCP - General Internal Medicine 05/10/21 documented as of this encounter
--- OUTSIDE RECORDS SUMMARY | 2024-12-27 08:44 | XMS_ITS | Clinical Summary ---
Author Organization [facility] Address [address] [place] [address] Care Team Providers Care Bell Tier Name Role Phone Rebecca Carrasco MD Primary Care Provider [phone] Allergies Active Allergy Reactions Criticality Noted Date [...] iferol 500-10 MG-MCG TabIndications :MG (myasthenia gravis) (HCC) TAKE 2 TABLETS BY MOUTH ONCE DAILY WITH FOOD 180 tablet 11 4 Active predniSONE (DELTASONE) 5 MG tabletIndicati ons:MG (myasthenia gravis) (HCC) Take 1 tablet (5 mg total) by [...] 3 chronic kidney disease 08/19/2020 0 07/19/2022 Family History Medical History Relation Name Comments [...] Health Maintenance Due Date Last Done Comments Advance Care Planning 1948 Hepatitis C Virus Screening 1948 Foot Exam 1958 Lipid Panel 1958 Ophthalmology Exam 1958 Microalbumin/Creatinine Ratio Urine 1966 DTaP/Tdap/Td Vaccines (1 - Tdap) 06/15/1967 Pneumococcal Vaccines 50+ (1 of 2 - PCV) 06/15/1967 Zoster (Shingles) Vaccine (1 of 2) 1998 Hemoglobin A1C 10/19/2022 07/19/2022 RSV Vaccine 50 years and older and Patients (1 - 1-dose 75+ series) 06/15/2023 Creatinine with GFR 07/20/2023 07/19/2022 Influenza Vaccine 10/04/2024 12/08/2023, 12/09/2022 COVID-19 Vaccine ( season) 2024 01/11/2023, 11/14/2022, 09/22/2021, Additional history exists Hepatitis B Vaccines Aged Out No long [...] A1C 8.2(H) <5.7 % of total Hgb [facility] Comment: For someone without known diabetes, a [...] A1c for diagnosis of diabetes for children. Blood specimen (specimen) 07/19/2022 12:48 PM EDT 07/19/2022 12:48 PM EDT Narrative [facility] - 07/20/2022 1:59 AM EDT FASTING:YES FASTING: YES Robbin Nuno MD LAB BLOOD ORDERABLES Fin al Result [facility] [address] [place] [phone] * (ABNORMAL) Basic Metabolic Panel (07/19/2022 12:48 PM EDT) Pathologist [facility] Glucose 147(H) 65 - 99 mg/dL [facility] Comment: Fasting reference interval For someone without known diabetes, a glucose value >125 mg/dL indicates that they may have diabetes and this should be confirmed with a follow-up test. Blood Urea Nitrogen (BUN) 20 7 - 25 mg/dL [facility] Creatinine 1.33(H) 0.70 - 1.28 mg/dL [facility] Creatinine w/ eGFR 56(L) > OR = 60 mL/min/1.7 3m2 [facility] Comment: The eGFR is based on the CKD-EPI 2020 equation. To calculate the new eGFR from a previous Creatinine or Cystatin C result, go to https://www.kidney.org/professionals/ kdoqi/gfr%5Fcalculator BUN/Creatinine Ratio 15 6 - 22 (calc) [facility] Sodium 138 135 - 146 mmol/L [facility] Potassium 5.3 3.5 - 5.3 mmol/L [facility] Chloride 103 98 - 110 mmol/L [facility] CO2 26 20 - 32 mmol/L [facility] Calcium 10.3 8.6 - 10.3 mg/dL [facility] Blood specimen (specimen) 07/19/2022 12:48 PM EDT 07/19/2022 12:48 PM EDT Narrative [facility] - 07/20/2022 1:59 AM EDT FASTING:YES FASTING: YES Robbin Nuno MD LAB BLOOD ORDERABLES Fin al Result [facility] [address] [place] [phone] from Last 3 Months or Most Recently Relevant to Health Maintenance Insurance MEDICARE PART A & B [facility] Care Teams Bell Tier Relationship Specialty Start Date End Date Rebecca Carrasco MD [address] [place] [id number] PCP - General Internal Medicine 05/10/21
--- OUTSIDE RECORDS SUMMARY | 2024-12-27 08:44 | XMS_ITS | Encounter Summary ---
Author Organization [facility] Address [address] [place] [address] Care Team Providers Care Brim Pouncer Name Role Phone Rebecca Carrasco MD Primary Care Provider [phone] Encounter Details Date Type Department Care Team ([facility] Contact Info) Description 06/23/2021 Scanned Document [facility] Neurology Ophthalmology [address] [place] [phone] Harlan Maya MD Social History Tobacco Use [...] on filedocumented in this encounter Care Teams Brim Pouncer Relationship Specialty Start Date End Date Rebecca Carrasco MD [address] [place] [address] [place] [address] PCP - General Internal Medicine 05/10/21 documented as of this encounter
--- OUTSIDE RECORDS SUMMARY | 2024-12-27 08:44 | XMS_ITS | Encounter Summary ---
Author Organization [facility] Address [address] [place] [address] Care Team Providers Care Brake Repairer Name Role Phone Rebecca Carrasco MD Primary Care Provider Encounter Details Date Type Department Care Team ([facility] Contact Info) Description 06/23/2021 Scanned Document [facility] Neurology Ophthalmology [address] [place] [phone] Harlan Maya MD Social History Tobacco Use [...] on filedocumented in this encounter Care Teams Brake Repairer Relationship Specialty Start Date End Date Rebecca Carrasco MD [address] [place] [address] [place] [address] PCP - General Internal Medicine 05/10/21 documented as of this encounter
[2024-12-27 11:57] LABS: Hematocrit 39.5 % (42.0-52.0); Hemoglobin 11.9 g/dl (14.0-18.0); Mean Corpuscular HGB Conc 30.1 g/dl (31.0-36.0); Mean Corpuscular Hemoglobin 24.8 pg (27.0-33.0); Mean Corpuscular Volume 82.3 fL (80.0-98.0); NRBC Abs Auto 0.000 X10*3/uL (0.0-0.012); NRBC Pct Auto 0.0 /100WBC (0.0-0.2); Platelet Count 371 X10*3/uL (160-400); Red Blood Count 4.80 X10*6/uL (4.60-5.80); White Blood Count 12.3 X10*3/uL (4.8-10.8)
[2024-12-27 12:07] LABS: Alanine Aminotransferase 17 U/L (0-40); Albumin Level 4.1 g/dL (3.5-5.0); Alkaline Phosphatase 64 U/L (39-117); Anion Gap 13 (12-20); Aspartate Amino Transferase 22 U/L (5-37); Blood Urea Nitrogen 26 mg/dL (9-16); Calcium 9.5 mg/dL (8.4-10.2); Carbon Dioxide 23 mmol/L (22-29); Chloride 109 mmol/L (96-108); Estimated Glomerular Filt Rate 39; Potassium 5.1 mmol/L (3.3-5.1); Sodium 140 mmol/L (135-145); Total Protein 7.3 g/dL (6.5-8.0)
== END 2024-12-27 08:22 | disposition home or self-care (01) ==
LOC: HO.10HDL 08:21
PROVIDERS: Visit Provider Internal Medicine Hypertension Specialist
DX: N18.9 Chronic kidney disease, unspecified (principal)
CPT/HCPCS: 36415; 80053; 85027

== ENCOUNTER 2025-01-01 09:16 | Outpatient (AMB) | payer MEDICARE, BC, SELFPAY ==
[2025-01-01 09:19] VITALS: BP 130/62; PULSE 77; O2SAT 99; BMI 25.5
--- NOTE | 2025-01-01 09:19 | HO.NEPHOV_ITS ---
Vital Signs 01/01/25 09:19 Height 5 ft 7 in Weight 163 lb BMI 25.5 BP 130/62 Blood Pressure Location Lt brachial Position Sitting Pulse 77 Pulse Source Pulse Oximeter Pulse Oximetry (%) 99 Oxygen Delivery Method Room Air Intake Visit Reasons: 6 mnts confirmed [employer] Professor Required: No Accompanied by: Self / Same As Patient Allergies No Known Allergies Allergy (Verified 01/01/25 09:21) Medication List - Last Reconciled 01/01/25 by Terrance Mclean MD calcium carbonate-vitamin D3 500 mg-10 mcg (400 unit) (Oyster Shell Calcium- Vitamin D3) 2 tabs PO DAILY empagliflozin 12.5 mg PO DAILY fenofibrate 54 mg PO DAILY hydralazine 50 mg PO BID hydrochlorothiazide 25 mg PO DAILY insulin glargine 38 units subcut QPM mecobalamin (vitamin B12) 1,000 mcg PO DAILY metformin ER 1,000 mg PO DAILY prednisone 5 mg PO Q OTHER DAY rosuvastatin 40 mg PO DAILY HPI Comments Details: 72-year-old man with a history of longstanding hypertension and mild CKD. Overall blood pressure has been well controlled. Serum creatinine has been relatively stable. He was diagnosed with myasthenia gravis after developing double vision. Initially was treated with high-dose of steroids and currently he has on a tapering dose. He is scheduled for a bone densitometry Overall is doing well. No new complaints today. 11/15/23;Farxiga hs been added;HOme BP is excellent ;Office readings elevated 06/19/24 No new issues 01/01/25 - The patient is a 74-year-old male presenting with hypertension and chronic kidney disease. - Hypertension: Blood pressure readings vary, with recent values of 130/62 mmHg and 156/unknown. - Chronic Kidney Disease: Kidney function stable with creatinine levels of 1.4 to 1.5. - Myasthenia Gravis: History noted, no specific details discussed. - Vertigo: Managed with ENT referral and physical therapy for inner ear crystals. Physical Exam General: Awake. Comfortable. HENT: Neck supple. Mucosa moist. Noted vertigo after laying down. Pulmonary: Lungs aeration equal. No rales. Cardiology: Heart S1-S2 heard. No gallop. Blood pressure 130/62. Abdomen: Soft. Non tender. Bowel sounds normal. Neurologic: No involuntary movements. No myoclonus. Noted lightheadedness when getting out of bed. Extremities: No edema. No rash. PFSH Family History Father Hypertension Diabetes Mother Hypertension Social History Patient Tobacco Use Status: Never used Tobacco Physical Exam Vital Signs: Last Vital Signs Pulse 77 01/01/25 09:19 BP 130/62 01/01/25 09:19 Pulse Ox 99 01/01/25 09:19 Oxygen Delivery Method Room Air 01/01/25 09:19 BMI result Body Mass Index 25.5 Comfortable Neck supple no JVD. Lungs entry equal no rales. Heart S1-S2 heard no gallop or rub. Abdomen soft nontender. Neuro alert awake oriented. No asterixis. Extremities no edema. Results Reviewed Nephrology Results: Hgb, (14.0-18.0) 11.9 g/dl L 12/27/24 WBC, (4.8-10.8) 12.3 X10*3/uL H 12/27/24 Plt Count, (160-400) 371 X10*3/uL 12/27/24 Sodium, (135-145) 140 mmol/L 12/27/24 Potassium, (3.3-5.1) 5.1 mmol/L 12/27/24 Chloride, (96-108) 109 mmol/L H 12/27/24 Carbon Dioxide, (22-29) 23 mmol/L 12/27/24 BUN, (9-16) 26 mg/dL H 12/27/24 Creatinine, (0.5-1.4) 1.70 mg/dL H 12/27/24 Calcium, (8.4-10.2) 9.5 mg/dL 12/27/24 Assessment & Plan Assessment & Plan (1) CKD (chronic kidney disease): Comment: Due to diabetic hypertensive nephrosclerosis Code(s): N18.9 - Chronic kidney disease, unspecified Category: Medical Plan: Overall renal function is relatively close to baseline. Goal is to slow the progression of renal disease Maintain blood pressure less than 130/80 Continue to avoid nephrotoxic agents Increase p.o. fluid intake Agree with SGLT2 inhibitor Not on ACEi due to mild Hyperkalemia in the past He has minimal microalbuminuria. She will continue to monitor (2) HTN (hypertension): Comment: Blood pressure is well control at home; Code(s): I10 - Essential (primary) hypertension Category: Medical Plan: Discussed importance of low-salt diet. No changes were made to his antihypertensive regimen. (3) Diabetes mellitus with chronic kidney disease: Code(s): E11.22 - Type 2 diabetes mellitus with diabetic chronic kidney disease Category: Medical Plan: Maintain A1c less than 7% Watch blood sugars while on prednisone Plan Potassium is normal Currently on MEtformin BUt eGFR is stable. If tCO2 decreases further, would have to stop Metformin h/o Myasthenia Gravis On Prednisone Orders: Orders Total Protein Urine Random 6 Months E11. - Type 2 diabetes mellitus with diabetic chronic kidney disease, I10 - Essential (primary) hypertension, N18.9 - Chronic kidney disease, unspecified Basic Metabolic Panel 6 Months E11. - Type 2 diabetes mellitus with diabetic chronic kidney disease, N18.9 - Chronic kidney disease, unspecified Creatinine Urine 6 Months E11. - Type 2 diabetes mellitus with diabetic chronic kidney disease, I10 - Essential (primary) hypertension, N18.9 - Chronic kidney disease, unspecified UA and rflx microscopic 6 Months E11. - Type 2 diabetes mellitus with diabetic chronic kidney disease, I10 - Essential (primary) hypertension, N18.9 - Chronic kidney disease, unspecified Coding Level of Care Code Est Pt Level 4 (13211) Diagnoses CKD (chronic kidney disease) N18.9 HTN (hypertension) I10 Diabetes mellitus with chronic kidney disease
--- OUTSIDE RECORDS SUMMARY | 2025-01-01 10:33 | XMS_ITS | Encounter Summary ---
Author Organization [facility] Address [address] [place] [address] Care Team Providers Care Bell Captain Name Role Phone Rebecca Carrasco MD Primary Care Provider [phone] Encounter Details Date Type Department Care Team ([facility] Contact Info) Description 06/23/2021 Scanned Document [facility] Neurology Ophthalmology [address] [place] [phone] Harlan Maya MD Social History Tobacco Use [...] on filedocumented in this encounter Care Teams Bell Captain Relationship Specialty Start Date End Date Rebecca Carrasco MD [address] [place] [address] [place] [address] PCP - General Internal Medicine 05/10/21 documented as of this encounter
--- OUTSIDE RECORDS SUMMARY | 2025-01-01 10:33 | XMS_ITS | Encounter Summary ---
Author Organization [facility] Address [address] [place] [address] Care Team Providers Care Ict Educator Name Role Phone Rebecca Carrasco MD Primary Care Provider [phone] Encounter Details Date Type Department Care Team (Late st Contact Info) Description 06/16/2021 Scanned Document [facility] Neurology Ophthalmology [address] [phone] Anna Valenzuela DO [address] [place] [phone] Social History Tobacco Use Types Packs/Day Years [...] on filedocumented in this encounter Care Teams Ict Educator Relationship Specialty Start Date End Date Rebecca Carrasco MD [address] [place] [id number] PCP - General Internal Medicine 05/10/21 documented as of this encounter
--- OUTSIDE RECORDS SUMMARY | 2025-01-01 10:33 | XMS_ITS | Encounter Summary ---
Author Organization [facility] Address [address] [facility] [address] [place] [address] Phone Care Team Providers Care Industrial Gas Service Helper Name Role Phone Rebecca Carrasco MD Primary Care Provider [phone] Reason for Visit * Reason Comments Med Refill Encounter Details Date Type Department Care Team (Late st Contact Info) Description 03/08/2022 Refill [facility] [address] [facility] [address] [place] [phone] Terrance Mclean MD Social History [...] on filedocumented in this encounter Care Teams Industrial Gas Service Helper Relationship Specialty Start Date End Date Rebecca Carrasco MD [address] [place] [phone] PCP - General 03/16/20 documented as of this encounter
--- OUTSIDE RECORDS SUMMARY | 2025-01-01 10:33 | XMS_ITS | Encounter Summary ---
Author Organization [facility] Address [address] [place] [address] Care Team Providers Care Intelligence Group Supervisor Name Role Phone Rebecca Carrasco MD Primary Care Provider [phone] Encounter Details Date Type Department Care Team ([facility] Contact Info) Description 06/23/2021 Scanned Document [facility] Neurology Ophthalmology [address] [place] [phone] Harlan Maya MD Social History Tobacco Use [...] on filedocumented in this encounter Care Teams Intelligence Group Supervisor Relationship Specialty Start Date End Date Rebecca Carrasco MD [address] [place] [address] [place] [address] PCP - General Internal Medicine 05/10/21 documented as of this encounter
--- OUTSIDE RECORDS SUMMARY | 2025-01-01 10:33 | XMS_ITS | Encounter Summary ---
Author Organization [facility] Address [address] [place] [address] Care Team Providers Care Wash Rack Operator Name Role Phone Rebecca Carrasco MD Primary Care Provider [phone] Encounter Details Date Type Department Care Team ([facility] Contact Info) Description 06/23/2021 Scanned Document [facility] Neurology Ophthalmology [address] [place] [phone] Harlan Maya MD Social History Tobacco Use [...] on filedocumented in this encounter Care Teams Wash Rack Operator Relationship Specialty Start Date End Date Rebecca Carrasco MD [address] [place] [address] [place] [address] PCP - General Internal Medicine 05/10/21 documented as of this encounter
--- OUTSIDE RECORDS SUMMARY | 2025-01-01 10:33 | XMS_ITS | Clinical Summary ---
Author Organization [facility] Address [address] [place] [address] Care Team Providers Care Orange Grower Name Role Phone Rebecca Carrasco MD Primary Care Provider [phone] Allergies Active Allergy Reactions Criticality Noted Date [...] A1C 8.2(H) <5.7 % of total Hgb [facility] Comment: For someone without known diabetes, a [...] MD LAB BLOOD ORDERABLES Fin al Result [email or web address] [address] [place] [phone] * (ABNORMAL) Basic Metabolic Panel (07/19/2022 12:48 PM EDT) Pathologist [facility] Glucose 147(H) 65 - 99 mg/dL [facility] Comment: Fasting reference interval For someone without known diabetes, a glucose value >125 mg/dL indicates that they may have diabetes and this should be confirmed with a follow-up test. Blood Urea Nitrogen (BUN) 20 7 - 25 mg/dL [facility] Creatinine 1.33(H) 0.70 - 1.28 mg/dL [facility] Creatinine w/ eGFR 56(L) > OR = 60 mL/min/1.7 3m2 [facility] Comment: The eGFR is based on the CKD-EPI 2020 equation. To calculate the new eGFR from a previous Creatinine or Cystatin C result, go to https://www.kidney.org/professionals/ kdoqi/gfr%5Fcalculator BUN/Creatinine Ratio 15 6 - 22 (calc) [facility] Sodium 138 135 - 146 mmol/L [facility] Potassium 5.3 3.5 - 5.3 mmol/L [facility] Chloride 103 98 - 110 mmol/L [facility] CO2 26 20 - 32 mmol/L [facility] Calcium 10.3 8.6 - 10.3 mg/dL [facility] Blood specimen (specimen) 07/19/2022 12:48 PM EDT 07/19/2022 12:48 PM EDT Narrative [facility] - 07/20/2022 1:59 AM EDT FASTING:YES FASTING: YES Robbin Nuno MD LAB BLOOD ORDERABLES Fin al Result [email or web address] [address] [place] [phone] from Last 3 Months or Most Recently Relevant to Health Maintenance Insurance MEDICARE PART A & B [facility] Care Teams Orange Grower Relationship Specialty Start Date End Date Rebecca Carrasco MD [address] [place] [id number] PCP - General Internal Medicine 05/10/21
--- OUTSIDE RECORDS SUMMARY | 2025-01-01 10:34 | XMS_ITS | Encounter Summary ---
Author Organization [facility] Address [address] [place] [address] Care Team Providers Care Health Unit Clerk Name Role Phone Rebecca Carrasco MD Primary Care Provider [phone] Encounter Details Date Type Department Care Team ([facility] Contact Info) Description 12/15/2021 Scanned Document [facility] Neurology Ophthalmology [address] [place] [phone] Harlan aMya MD Social History Tobacco Use Types Packs/Day [...] on filedocumented in this encounter Care Teams Health Unit Clerk Relationship Specialty Start Date End Date Rebecca Carrasco MD [address] [place] [address] [place] [address] PCP - General Internal Medicine 05/10/21 documented as of this encounter
--- OUTSIDE RECORDS SUMMARY | 2025-01-01 10:34 | XMS_ITS | Clinical Summary ---
Author Organization [facility] Address [address] [place] [phone] Phone Care Team Providers Care Desizing Pad Operator Name Role Phone Rebecca Carrasco MD Primary Care Provider [phone] Allergies Active Allergy Reactions Criticality Noted Date [...] patient's age to complete this topic [place] [address] [address] [place] [address] [place] [place] [address] Medicare Care Teams Desizing Pad Operator Relationship Specialty Start Date End Date Rebecca Carrasco MD [address] [place] [id number] PCP - General 03/16/20
== END 2025-01-01 09:42 | disposition home or self-care (01) ==
LOC: HO.HKAS 09:17
PROVIDERS: PCP Internal Medicine; Visit Provider Internal Medicine Hypertension Specialist
DX: I12.9 Hypertensive chronic kidney disease with stage 1 through stage 4 chronic kidney disease, or unspecified chronic kidney disease (principal); N18.9 Chronic kidney disease, unspecified; E11.22 Type 2 diabetes mellitus with diabetic chronic kidney disease
CPT/HCPCS: 99214

== ENCOUNTER → 2025-01-01 09:16 | Outpatient (BNVA) | payer MEDICARE, BC, SELFPAY | PROVIDERS: PCP Internal Medicine; Visit Provider Internal Medicine Hypertension Specialist | DX: E11.22 Type 2 diabetes mellitus with diabetic chronic kidney disease (principal); I12.9 Hypertensive chronic kidney disease with stage 1 through stage 4 chronic kidney disease, or unspecified chronic kidney disease; N18.9 Chronic kidney disease, unspecified | CPT/HCPCS: 99212 ==